=== PATIENT | female | born 1990 | race Caucasian/White ===

== ENCOUNTER 2017-01-06 08:00 | Inpatient (IN) | payer OTHER ==
[~2017-01-06] VITALS: Ht 154.9 cm; Wt 77.7 kg
[~2017-01-06 08:00] MED LIST: NO CURRENT MEDS
[2017-01-06 08:17] VITALS: Ht 154.9 cm; Wt 77.7 kg
[2017-01-06 08:24] VITALS: BP 120/81; PULSE 108; RESP 18
[2017-01-06] MEDS ORDERED: DEXTROSE 5%-LR 1,000 ML IV SCH (09:50)
[2017-01-06] MEDS ORDERED: OXYTOCIN 30 UNITS/LR 500 ML IV SCH ×2 (10:00)
[2017-01-06] MEDS ORDERED: LIDOCAINE 1% (MPF) 30 ML INJ INJ PRN (10:00)
[2017-01-06] MEDS ORDERED: IBUPROFEN 600 MG TAB PO PRN (10:00)
[2017-01-06] MEDS ORDERED: OXYTOCIN 30 UNITS/LR 500 ML IV PRN ×2 (10:00→20:30)
[2017-01-06] MEDS ORDERED: CARBOPROST 250 MCG INJ IM PRN ×2 (10:00→20:30)
[2017-01-06] MEDS ORDERED: BUTORPHANOL 2 MG INJ IV PRN ×2 (10:00)
[2017-01-06] MEDS ORDERED: METHYLERGONOVINE 0.2 MG INJ IM PRN ×2 (10:00→20:30)
[2017-01-06] MEDS ORDERED: OXYCODONE/ACETAMINOPHEN (5/325) TAB PO PRN (10:00)
[2017-01-06] MEDS ORDERED: MISOPROSTOL 200 MCG TAB PR PRN ×2 (10:00→20:30)
[2017-01-06 10:04] LABS: BASOPHILS % 0.1 % (0.0-2.0); EOSINOPHILS # 0.1 10^3/ul (0.0-0.5); EOSINOPHILS % 0.7 % (0.0-7.0); HEMATOCRIT 36.8 % (37.0-47.0); HEMOGLOBIN 12.4 g/dl (12.0-16.0); LYMPHOCYTES % 27.3 % (15.0-51.0); MEAN CORPUSCULAR HEMOGLOBIN 27.4 pg (29.0-33.0); MEAN CORPUSCULAR HGB CONC 33.7 g/dl (32.0-37.0); MEAN CORPUSCULAR VOLUME 81.2 fl (82.0-101.0); MONOCYTE # 0.4 10^3/ul (0.3-0.9); MONOCYTES % 5.4 % (0.0-11.0); NEUTROPHIL # 4.9 10^3/ul (1.6-7.5); NEUTROPHILS % 66.2 % (39.0-77.0); PLATELET COUNT 295 10^3/UL (140-415); RED BLOOD COUNT 4.53 10^6/ul (4.20-5.40); RED CELL DISTRIBUTION WIDTH 13.1 % (11.5-14.5); WHITE BLOOD COUNT 7.4 10^3/ul (4.8-10.8)
[2017-01-06 10:19] LABS: INR 0.91; PROTIME 12.2 Sec (12.2-14.2)
[2017-01-06 10:20] LABS: PARTIAL THROMBOPLASTIN TIME 29.5 Sec (25.0-35.0)
[2017-01-06] MEDS ORDERED: DINOPROSTONE 10 MG VAG SUPP VAG ONE (11:30)
[2017-01-06] MEDS: LACTATED RINGER'S 1,000 ML IV SCH ×3 (12:00→16:58)
[2017-01-06] MEDS ORDERED: LACTATED RINGER'S 1,000 ML IV PRN (14:00)
[2017-01-06] MEDS ORDERED: FENTAnyl 2MCG/ML-ROPIV 0.2% 100 ML ONE (15:19)
[2017-01-06] MEDS ORDERED: TERBUTALINE 1 ML ONE (16:32)
--- NOTE | 2017-01-06 16:48 | RADRPT ---
PROCEDURE: US OB biophysical profile. CLINICAL INDICATION: evaluation TECHNIQUE: Multiple sonographic images of the pelvis were obtained. The images were reviewed on a PACS workstation. COMPARISON: No prior studies are available for comparison. FINDINGS: There is a single viable intrauterine gestation. Cardiac activity is present with 134 beats per min radha. There is a vertex presentation. The placenta is posterior. There is no evidence of placental abruption. There is a normal amount of amniotic fluid with an BRENDA = 12.9 cm. Biophysical profile: movement 2/2 tone 2/2. breathing 2/2 BRENDA 2/2 Total 09/29 Cholelithiasis is incidentally noted. RPTAT: AA . IMPRESSION: Normal biophysical profile. Normal BRENDA. Cholelithiasis is incidentally noted. Physician Shamika Date Time Electronically viewed and signed by Physician Shamika on 01/06/2017 16:48 /
[2017-01-06] MEDS ORDERED: TERBUTALINE 1 MG/ML INJ SC ONE (17:00)
[2017-01-06] MEDS ORDERED: FENTAnyl 2MCG/ML-ROPIV 0.2% 100 ML BAG EPI SCH (17:00)
[2017-01-06] MEDS ORDERED: NALOXONE (0.4 MG/ML) INJ IV PRN (17:00)
--- NOTE | 2017-01-06 20:21 | HP ---
Date/Time of Note Date/Time of Note DATE: 01/06/17 TIME: 20:16 OB - History Hx of Present Free Text/Dictation 26 years old female at 39 weeks gestation with GDM. admitted for induction. 2 para 1 with an EDC of 01/13/2017 Chief Complaint: early labor Estimated Due Date: Jan 13, 2017 : 2 Para: 1 Care: Limited Care Ultrasounds: No ultrasounds Obstetrical Complications: Gestational Diabetes Medical Complications: None Past Family/Social History * Past Medical, Surgical, Family and Obstetric Histories reviewed from chart. Blood Type: O+ Rubella: immune RPR/VDRL: Negative GBS Status: Negative HBsAG: Negative OB Admission Exam Vital Signs Vital Signs Vital Signs Date Time Temp Pulse Resp B/P Pulse Ox O2 Delivery O2 Flow Rate FiO2 01/06/17 08:24 97.8 108 18 120/81 Room Air Physical Exam HEENT: WNL Heart: Rhythm Normal Lungs: Clear, Equal Abdomen: WNL Extremities: Normal Reflexes: Normal Cervical Dilatation: 1cm Effacement: 50% Station: -2 Membranes: Intact Heart Rate: 120's Accelerations: Accelerations Present Decelerations: No Decelerations Varibility: Moderate Contractions on Admission: 6-10 Minutes Apart Intensity: Mild Last 72 hourBlood Glucose Bedside Glucose - 72 Hours Test 01/06/17 13:34 01/06/17 17:40 Bedside Glucose 79mg/dL (70-220) 90mg/dL (70-220) Last 72 hours Lab Results CBC & BMP 01/06/17 09:35 OB Assessment/Plan Reason for admission: induction of labor Other Assessment: For delivery Plan: Induction Induction Method: per Misoprostol Protocol KAY YANES MD Jan 06, 2017 20:21
--- NOTE | 2017-01-06 20:25 | LDN ---
Date/Time of Note Date/Time of Note DATE: 01/06/17 TIME: 20:21 Delivery Summary spontaneous vaginal delivery Baby boy 9 NICU team present due to vaginal bleeding Left vaginal laceration repaired under epidural anesthesia Spontaneous vaginal delivery of the placenta No complications Epidural anesthesia Weeks of Gestation 39 Placenta Delivered: Spontaneously Meconium: none Episiotomy: No Laceration repair: left vaginal Anesthesia type: Epidural Estimated blood loss: 200 Sponge & Needle done & correct: Yes All needle counts correct: Yes Any foreign bodies felt in the: No Problems: Infant Delivery Information Sex Sex: male Apgars 1 Minute: 9 5 Minute: 9 Suctioning Nose & mouth suctioned at john: Yes Umbilical Cord Umbilical cord with: 3 Vessels Cord presentations: nuchal cord Nuchal cord present X: 3 Cord Blood was obtained: Yes Mother & Baby Disposition Disposition Mom & Baby to Maternity; Good: Yes KAY YANES MD Jan 06, 2017 20:25
[2017-01-06] MEDS ORDERED: LANOLIN 7 GM TUBE TOP PRN (20:30)
[2017-01-06] MEDS ORDERED: DIBUCAINE 1% 30 GM OINT PR PRN (20:30)
[2017-01-06] MEDS ORDERED: HYDROCODONE/APAP (5/325) TAB PO PRN ×2 (20:30)
[2017-01-06] MEDS ORDERED: ONDANSETRON 4 MG INJ IV PRN (20:30)
[2017-01-06] MEDS ORDERED: ACETAMINOPHEN 325 MG TAB PO PRN ×2 (20:30)
[2017-01-06] MEDS ORDERED: DIPHENHYDRAMINE 25 MG CAP PO PRN (20:30)
[2017-01-06 21:40] VITALS: BP 123/80; PULSE 72; RESP 18
[2017-01-06] MEDS: SENNA/DOCUSATE NA (8.6MG/50MG) TAB PO SCH (23:48)
[2017-01-06] MEDS: IBUPROFEN 800 MG TAB PO SCH (23:48)
[2017-01-07] VITALS: BP 125/83; PULSE 73; RESP 18
[2017-01-07] MEDS: OXYTOCIN 30 UNITS/LR 500 ML IV SCH ×2 (00:25→01:44)
[2017-01-07 04:00] VITALS: BP 120/68; PULSE 82; RESP 18
[2017-01-07] MEDS: IBUPROFEN 800 MG TAB PO SCH ×4 (05:56→23:54)
[2017-01-07 07:45] VITALS: BP 113/75; PULSE 76; RESP 16
[2017-01-07] MEDS: SENNA/DOCUSATE NA (8.6MG/50MG) TAB PO SCH ×2 (09:02→20:43)
[2017-01-07 09:03] LABS: BASOPHILS % 0.2 % (0.0-2.0); EOSINOPHILS % 0.3 % (0.0-7.0); HEMATOCRIT 34.2 % (37.0-47.0); HEMOGLOBIN 11.5 g/dl (12.0-16.0); LYMPHOCYTES # 1.7 10^3/ul (0.8-2.9); LYMPHOCYTES % 17.3 % (15.0-51.0); MEAN CORPUSCULAR HEMOGLOBIN 27.6 pg (29.0-33.0); MEAN CORPUSCULAR HGB CONC 33.6 g/dl (32.0-37.0); MEAN CORPUSCULAR VOLUME 82.2 fl (82.0-101.0); MEAN PLATELET VOLUME 11.1 fl (7.4-10.4); MONOCYTE # 0.6 10^3/ul (0.3-0.9); NEUTROPHIL # 7.4 10^3/ul (1.6-7.5); NEUTROPHILS % 75.8 % (39.0-77.0); PLATELET COUNT 245 10^3/UL (140-415); RED BLOOD COUNT 4.16 10^6/ul (4.20-5.40); RED CELL DISTRIBUTION WIDTH 13.2 % (11.5-14.5); WHITE BLOOD COUNT 9.7 10^3/ul (4.8-10.8)
[2017-01-07 12:09] VITALS: BP 122/70; PULSE 76; RESP 16
[2017-01-07 16:00] VITALS: BP 121/72; PULSE 76; RESP 16
[2017-01-07 20:00] VITALS: BP 117/76; PULSE 72; RESP 18
--- NOTE | 2017-01-07 21:02 | PN ---
Date/Time of Note Date/Time of Note DATE: 01/07/17 TIME: 21:01 OB Subjective Subjective Subjective stable , doing well. afebrile, breast feeding no complaints uterus contracted. lochia normal OB Objective HEENT: WNL Heart: Rhythm Normal Lungs: Clear, Equal Abdomen: WNL Extremities: Normal Reflexes: Normal KAY YANES MD Jan 07, 2017 21:02
[2017-01-08 04:00] VITALS: BP 119/63; PULSE 72; RESP 18
[2017-01-08] MEDS: IBUPROFEN 800 MG TAB PO SCH (06:00)
[2017-01-08 08:15] VITALS: BP 110/64; PULSE 78; RESP 20
--- NOTE | 2017-01-08 08:37 | PD.PPDC ---
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
--- NOTE | 2017-01-08 08:41 | DS ---
Date/Time of Note Date/Time of Note DATE: 01/08/17 TIME: 08:39 Obstetrical Discharge Record Final Diagnosis Final Diagnosis: Term delivered Vaginal Delivery Obstetrical Delivery: Spontaneous Complications Gestational Diabetes Induction: Yes Condition on Discharge Physical Assessment Voiding: Yes Bowel Movement: Yes Breast: Soft, non-tender, Filling Fundus: Firm Calf Tenderness: No Patient Condition: Good KAY YANES MD Jan 08, 2017 08:41
[2017-01-08] MEDS: SENNA/DOCUSATE NA (8.6MG/50MG) TAB PO SCH (08:57)
[2017-01-08] MEDS ORDERED: DIPHTH/TET/ACEL PERTUSS (ADULT) 0.5 ML VIAL IM* ONE (09:00)
[2017-01-08] MEDS ORDERED: MEASLES,MUMPS,RUBELLA VACCINE INJ SC* ONE (09:00)
== END 2017-01-08 12:43 | disposition home or self-care (01) | DRG 775 ==
LOC: L-D 08:09 → PP1 21:48
PROVIDERS: ADMIT Obstetrics & Gynecology; ATTEND Obstetrics & Gynecology
PROC: 0UQGXZZ Repair Vagina, External Approach (ICD-10-PCS; 2017-01-06)
PROC: 3E033VJ Introduction of Other Hormone into Peripheral Vein, Percutaneous Approach (ICD-10-PCS; 2017-01-06)
PROC: 10E0XZZ Delivery of Products of Conception, External Approach (ICD-10-PCS; principal; 2017-01-06 08:00)
DX: O69.81X0 Labor and delivery complicated by cord around neck, without compression, not applicable or unspecified (principal); O71.4 Obstetric high vaginal laceration alone; Z3A.39 39 weeks gestation of pregnancy; Z37.0 Single live birth
CPT/HCPCS: 62319; 76818; 82947; 82962; 85025; 85610; 85730; 86592; 86900; 86901; 87340; 90715; 99464; J2210; J2405; J2590; J3010; J3105; J7120; J7121

== ENCOUNTER 2017-11-27 10:35 | Inpatient (IN) | END 2017-11-28 15:45 | disposition home or self-care (01) | DRG 807 ==